=== PATIENT | female | born 1985 | race American Indian/Alaskan Native ===

== ENCOUNTER 2018-09-02 10:02 | Inpatient (IN) | payer MEDICAID ==
[2018-09-02] MEDS: LACTATED RINGERS 1,000 ML IV SCH ×2 (10:20→11:10)
[2018-09-02 10:42] LABS: Basophils % (Auto) 0.3 % (0.0-1.8); Eosinophils % (Auto) 0.6 % (0.0-4.3); Hematocrit 41.3 % (30.3-42.9); Lymphocytes # (Auto) 1.3 K/mm3 (1.2-5.4); Lymphocytes % (Auto) 20.5 % (13.4-35.0); Mean Corpuscular HGB Conc 34 % (30-34); Mean Corpuscular Volume 90 fl (79-97); Monocytes # (Auto) 0.7 K/mm3 (0.0-0.8); Monocytes % (Auto) 10.6 % (0.0-7.3); Platelet Count 225 K/mm3 (140-440); Red Blood Count 4.59 M/mm3 (3.65-5.03); Red Cell Distribution Width 14.6 % (13.2-15.2)
--- NOTE | 2018-09-02 10:52 | Anesthesia Day of Surgery ---
Anesthesia Day of Surgery - Day of Surgery Patient Examined: Yes Patient H&P Reviewed: Yes Patient is NPO: Yes Beta Blockers: No Cardiac Clearance: No Pulmonary Clearance: No
--- NOTE | 2018-09-02 10:55 | Anesthesia Consultation ---
Anesthesia Consult and Med Hx Date of service: 09/02/18 - Airway Anesthetic Teeth Evaluation: Good ROM Head & Neck: Adequate Mental/Hyoid Distance: Adequate Mallampati Class: Class III Intubation Access Assessment: Possibly Difficult - Pulmonary Exam CTA: Yes - Cardiac Exam Cardiac Exam: No Murmur - Pre-Operative Health Status ASA Pre-Surgery Classification: ASA2 Proposed Anesthetic Plan: Spinal Nerve Block: Bilateral quadratus lumborum - Other Systems Hx Obesity: Yes
[2018-09-02] MEDS ORDERED: PITOCin/NS 20 UNIT/1000ML DRIP 20 UNITS/1,000 ML BAG IV SCH ×2 (11:00→14:00)
[2018-09-02] MEDS ORDERED: ANCEF/STERILE WATER 2 GM/20 ML 2 GM/20 ML SYRINGE IV NR (11:00)
[2018-09-02] MEDS ORDERED: REGLAN IV ONE (11:00)
[2018-09-02] MEDS ORDERED: BICITRA PO ONE (11:00)
[2018-09-02] MEDS ORDERED: PEPCID IV ONE (11:00)
--- NOTE | 2018-09-02 11:38 | History and Physical Report ---
History of Present Illness Date of examination: 09/02/18 Date of admission: 09/02/18 10:02 Chief complaint: scheduled repeat csec and salpingectomy History of present illness: this is a 33 yo at 39+2 weeks here for repeat csec. She is a patient of [facility] and has had a previous csec for NRFHT. She declines a . She also desires infertility. She has hx of preeclampsia on asa and depression dx no meds but has no suicidal nor homicidal ideation. Her GBS + Past History Past Medical History: other (depression) Past Surgical History: section (x1) Family/Genetic History: diabetes, other (anxiety and depression) Social history: single. denies: smoking, alcohol abuse, prescription drug abuse - Obstetrical History Expected Date of Delivery: 09/06/18 Actual Gestation: 39 Week(s) 3 Day(s) : 2 Para: 1 Hx # Term Pregnancies: 1 Number of Pregnancies: 0 Spontaneous Abortions: 0 Induced : 0 Number of Living Children: 1 Medications and Allergies Allergies Allergy/AdvReac Type Severity Reaction Status Date / Time ibuprofen [From Motrin] AdvReac Unknown Verified 09/02/18 10:15 Active Meds: Active Medications Cefazolin Sodium (Ancef/Sterile Water 2 Gm/20 Ml) 2 gm in 20 mls @ 80 mls/hr IV PREOP NR; Protocol Stop: 09/02/18 13:00 Lactated Ringer's (Lactated Ringers) 1,000 mls @ 2,250 mls/hr IV PREOP RAISSA Stop: 09/03/18 11:27 Last Admin: 09/02/18 11:10 Dose: 2,250 mls/hr Documented by: Oxytocin/Sodium Chloride (Pitocin/Ns 20 Unit/1000ml Drip) 20 units in 1,000 mls @ 0 mls/hr IV TITR RAISSA Review of Systems All systems: negative - Vital Signs Vital signs: Vital Signs Pulse Pulse Ox 101 H 98 09/02/18 10:20 09/02/18 10:20 Temp Pulse Resp BP Pulse Ox 98.6 F 111 H 18 122/73 97 09/02/18 10:49 09/02/18 11:05 09/02/18 10:49 09/02/18 10:49 09/02/18 11:05 - Physical Exam Breasts: Positive: normal Cardiovascular: Regular rate, Normal S1 Lungs: Positive: Clear to auscultation, Normal air movement Abdomen: Positive: normal appearance, soft, normal bowel sounds. Negative: distention, tenderness, guarding Genitourinary (Female): Positive: normal external genitalia, normal perenium Uterus: Positive: normal size, normal contour Anus/Rectum: Positive: normal perianal skin Extremities: Positive: normal Deep Tendon Reflex Grade: Normal +2 - Obstetrical FHR: category 1 Results Result Diagrams: 09/02/18 10:10 Abnormal lab results 09/02/18 Range/Units 10:10 [place] % (Auto) 10.6 H (0.0-7.3) % All other labs normal. Assessment and Plan A/P IUP 39+3 weeks previous csec and desires infertility Discussed r/b/ a of cesc which include but not limited to bleeding, infection and damage to pelvic and non pelvic organs, risk of blood clot, hysterectomy and . All questions answered will proceed with csec
[2018-09-02] MEDS ORDERED: NEO SYNEPHRINE/NS Syringe(OR USE) IV ONE (11:59)
[2018-09-02] MEDS ORDERED: ZOFRAN ONE (11:59)
--- NOTE | 2018-09-02 13:16 | Procedure Note ---
OB Delivery Note - Delivery Date of Delivery: 09/02/18 Surgeon: RAMON ADAM Estimated blood loss: 300cc - Section Preop diagnosis: repeat Postop diagnosis: same section procedure: section, other (salpingectomy ) Disposition: PACU Complications: none Narrative: see op note - A at 1 minute: 8 at 5 minutes: 9 Infant Gender: Male (6 pounds 12 ounces)
--- NOTE | 2018-09-02 13:25 | Operative Report ---
Operative Report Operative Report: DATE OF OPERATION: 09/02/18 PREOPERATIVE DIAGNOSES: 1. Intrauterine gestation at 39 weeks 2. Previous csec 3. Desires infertility POSTOPERATIVE DIAGNOSES: 1. Intrauterine gestation at 41 weeks, in active labor, second stage. 2. Arrest of descent. 3. Persistent occiput posterior position. 4. Delivery of viable, izrey-zao-nvvafhjxxqg-age male infant. OPERATION PERFORMED: Repeat low transverse section.and salpingectomy SURGEON: Magaly Cervantes MD ANESTHESIA: Spinal COMPLICATIONS: None. ESTIMATED BLOOD LOSS: 300 mL. DRAINS: Montoya catheter to the bladder. SPECIMENS TO PATHOLOGY: Cord blood for routine testing. OPERATIVE FINDINGS: A viable male infant with Apgars of 8 and 9 and birthweight of 6 pounds 12 ounces was delivered from a cephalic presentation The cord contained 3 vessels. There was normal anterior fundal placenta. The amniotic fluid was clear. The uterus, fallopian tubes and ovaries were normal. Minimal adhesions noted from tube to ovary DESCRIPTION OF OPERATION: The patient was brought to the operating suite in stable condition with spinal anesthesia on board and an indwelling catheter in place in the bladder. The patient was placed supine on the operating room table and rolled to her left side with a wedge. The abdomen was prepped and draped in standard fashion for section. After testing with forceps to assure an adequate anesthetic level, the surgery was commenced. We had counseled the patient extensively regarding the risks of the surgery including but not limited to stroke, embolus, phlebitis, pain, infection, hemorrhage, as well as injury to the infant and the internal organs such as the bowel, bladder, blood vessels, nerves, kidneys, ureters and pelvic organs. The patient was aware of the postoperative morbidity issues and recovery timeframes. The patient was aware she can form adhesions, which can result in obstruction of loop of bowel or ureter or chronic pain. She was aware that should she have hemorrhage and require blood transfusion, there was a small chance for exposure to hepatitis or HIV disease. With the scalpel, a Pfannenstiel skin incision was made. Dissection was carried down sharply through the subcutaneous tissues and fascia in a transverse plane with the scalpel, electrocautery and curved Cordova scissors. The fascia was sharply freed up superiorly and inferiorly from the underlying rectus muscles, which were bluntly and sharply divided. The peritoneum was entered carefully in a clear space with a curved hemostat. The peritoneal incision was then extended vertically with Metzenbaum scissors. A retractor and bladder blade were placed. A bladder flap was created by incising transversely through the peritoneum and vesicouterine fold and then bluntly dissecting the bladder distally. With the scalpel, a low transverse hysterotomy was commenced. The serosa and myometrium were scored with the scalpel. The uterine cavity was actually entered bluntly with a curved hemostat. The uterine incision was then extended laterally with the wood drilling machine operator's fingers.Domenica large placed. An intrauterine hand was placed and the head of the was brought up out of the pelvis into the uterine incision. With fundal pressure, he was delivered without difficulty. The nasopharynx and oropharynx were suctioned. The cord was doubly clamped and transected. The infant was then handed off to the nursery personnel. Apgars were good at 8 and 9. A cord pH was obtained, which subsequently revealed a normal value. Further cord blood was collected for routine testing. The placenta was manually removed. The uterine cavity was then curetted with a dry sponge and freed of the remaining membranes. The edges of the uterine incision were grasped with Fisher clamps. With the massage and the Pitocin, the uterus began to firm up normally. The uterine incision was then closed in 2 layers of 0 Vicryl sutures. The first suture was placed to the endometrium and myometrium. The second suture was placed through the endopelvic fascia and also reincorporated the bladder flap peritoneum. Peritoneal lavage was then performed. The pelvis and gutters were irrigated and suctioned and cleared of all blood and clots and amniotic fluid. The uterine incision was reinspected to assure hemostasis. The uterus, tubes and ovaries were inspected and were normal. Attention turned to tubes left tube identified and with ligasure completely transected tube. Attention turned to right tube and with ligasure complete transection of the left tube. Excellent hemostasis noted Once we were satisfied with the hemostasis, attention was turned to closure of the abdominal incision. The peritoneum, muscles and fascia were closed in layers using 0-Vicryl sutures. The subcutaneous tissue was closed with 3-0 plain sutures. The skin was closed with a subcuticular suture of 4-0 Vicryl followed by benzoin, Steri-Strips and a Telfa dressing. The patient was moved to the recovery room in stable condition with the Montoya catheter draining clear urine. Instruments, sponge and needle counts were reported as correct. Estimated blood loss was 800 mL. There were no complications.
[2018-09-02] MEDS ORDERED: PHENERGAN PR PRN (13:27)
[2018-09-02] MEDS ORDERED: NARCAN 0.4 MG/1 ML IV PRN (13:27)
[2018-09-02] MEDS ORDERED: TUCKS PAD TP PRN (13:27)
[2018-09-02] MEDS ORDERED: ANUCORT-HC PR PRN (13:27)
[2018-09-02] MEDS ORDERED: SENOKOT PO PRN (13:27)
[2018-09-02] MEDS ORDERED: MYLICON PO PRN (13:27)
[2018-09-02] MEDS ORDERED: LANSINOH TP PRN (13:27)
[2018-09-02] MEDS ORDERED: MORPHINE IV PRN (13:27)
[2018-09-02] MEDS ORDERED: ZOFRAN IV PRN (13:27)
[2018-09-02] MEDS ORDERED: SODIUM CHLORIDE FLUSH SYRINGE 10 ML IV SCH (14:00)
[2018-09-02] MEDS ORDERED: TORADOL IV ONE (14:12)
[2018-09-02] MEDS ORDERED: METHERGINE IM ONE (14:49)
[2018-09-02] MEDS: CYTOTEC PR SCH (15:02)
[2018-09-02] MEDS ORDERED: KETALAR ONE (16:24)
[2018-09-02] MEDS ORDERED: VERSED ONE (16:24)
[2018-09-02 16:27] LABS: Basophils % (Auto) 0.1 % (0.0-1.8); Hematocrit 40.2 % (30.3-42.9); Hemoglobin 13.5 gm/dl (10.1-14.3); Lymphocytes % (Auto) 6.9 % (13.4-35.0); Mean Corpuscular HGB Conc 34 % (30-34); Mean Corpuscular Volume 92 fl (79-97); Monocytes # (Auto) 0.5 K/mm3 (0.0-0.8); Monocytes % (Auto) 3.6 % (0.0-7.3); Platelet Count 201 K/mm3 (140-440); Red Blood Count 4.39 M/mm3 (3.65-5.03); Red Cell Distribution Width 14.7 % (13.2-15.2)
--- NOTE | 2018-09-02 16:28 | Event Note ---
Date: 09/02/18 I was contacted by the nurse that patient had several large clots passed. VSS pelvic exam several clots expressed s/p methergine IM and cytotoec 1000mg uterus noted to be firm below umbilicus. will take to OR for adequate visualization of the vagina cervix may consider if continued bleeding a D&C CBC abd coags sent
[2018-09-02 16:39] LABS: INR 1.1 (0.87-1.13)
[2018-09-02 16:40] LABS: Partial Thromboplastin Time 21.1 Sec. (24.2-36.6)
--- NOTE | 2018-09-02 17:32 | Event Note ---
Date: 09/02/18 Patient taken to OR for better visualization of vagina and cervix. cervix normal some nabothian cyst noted. Minimal bleeding noted. Vagina normal. Uterus firm at umbilicus. EBL 100 cc total 1100cc will continue methergine po q4 VSS pad count close monitor of vs
[2018-09-02] MEDS ORDERED: AMPICILLIN 2 GM in NACL 0.9% 50 ML IV SCH (18:00)
[2018-09-02] MEDS: MORPHINE IV PRN (20:09)
[2018-09-02] MEDS: METHERGINE PO SCH (20:09)
[2018-09-02] MEDS: GENTAMICIN 160 MG in NACL 0.9% 100 ML IV SCH (20:10)
[2018-09-02] MEDS: D5LR 1,000 ML IV SCH (20:10)
[2018-09-02] MEDS: NORCO 5/325 PO PRN (22:16)
[2018-09-03] MEDS: METHERGINE PO SCH ×2 (01:03→05:47)
[2018-09-03] MEDS: MORPHINE IV PRN ×2 (01:03→16:13)
[2018-09-03] MEDS: AMPICILLIN/NS 2 GM/100 ML 2 GM/100 ML BAG IV SCH ×2 (01:04→08:00)
[2018-09-03 01:24] LABS: Hematocrit 34.6 % (30.3-42.9); Hemoglobin 11.7 gm/dl (10.1-14.3)
[2018-09-03] MEDS: PERCOCET 5/325 PO PRN ×3 (04:14→15:26)
[2018-09-03] MEDS: GENTAMICIN 160 MG in NACL 0.9% 100 ML IV SCH ×3 (04:17→23:29)
[2018-09-03] MEDS: NORCO 5/325 PO PRN (05:47)
[2018-09-03] MEDS ORDERED: BOOSTRIX IM ONE (06:00)
--- NOTE | 2018-09-03 07:42 | Progress Note ---
Assessment and Plan A/P POD#1 s/p repeat csec and salpingectomy PPH maintained by methergine and cytotec bleeding decreased transfer to [facility] close monitor pain not controlled -morphin given close monitor maternal status Subjective - Subjective Date of service: 09/03/18 Principal diagnosis: s/p repeat csec/ salpingectomy/ PPH Interval history: this is a 33 yo at 39+2 weeks here for repeat csec. She is a patient of [facility] and has had a previous csec for NRFHT. She declines a . She also desires infertility. She has hx of preeclampsia on asa and depression dx no meds but has no suicidal nor homicidal ideation. Her GBS + Patient reports: appetite normal, voiding normally, no pain well controlled [place]: doing well Objective - Vital Signs Latest vital signs: Vital Signs Temp Pulse Resp BP BP Pulse Ox 09/03/18 07:34 114 H 127/61 09/03/18 01:34 113 H 126/63 09/03/18 00:33 109 H 124/69 09/02/18 23:33 108 H 123/58 09/02/18 22:33 101 H 130/61 09/02/18 21:33 107 H 124/57 09/02/18 20:33 94 H 133/77 09/02/18 20:32 98.7 F 94 H 18 133/77 09/02/18 11:05 111 H 97 09/02/18 11:00 102 H 97 09/02/18 10:55 108 H 98 09/02/18 10:50 99 H 98 09/02/18 10:49 98.6 F 18 122/73 09/02/18 10:45 107 H 97 09/02/18 10:40 102 H 98 09/02/18 10:35 102 H 96 09/02/18 10:30 107 H 96 09/02/18 10:25 108 H 96 09/02/18 10:22 106 H 94 09/02/18 10:20 101 H 98 Intake and Output 09/02/18 09/02/18 09/03/18 15:59 23:59 07:59 Intake Total 1000 2104 Balance 1000 2104 Intake: IV 1000 2104 Garamycin 160 mg In NaCl 104 0.9% 100 ml @ 104 mls/hr IV Q8H [facility] Rx#:[id number] Lactated Ringers 1,000 ml 1000 @ 2250 mls/hr IV PREOP [facility] Rx#:[id number] Other: Weight 99.79 kg - Exam Breasts: Present: normal Cardiovascular: Present: Regular rate, Normal S1 Lungs: Present: Clear to auscultation, Normal air movement Abdomen: Present: normal appearance, soft, normal bowel sounds. Absent: distention, tenderness, guarding Vulva: both: normal Uterus: Present: normal, firm, fundal height below umbilicus. Absent: bogginess, tenderness Extremities: Present: normal Deep Tendon Reflex Grade: Normal +2 Incision: Present: normal, dry, dressed - Labs Labs: Abnormal lab results 09/02/18 09/02/18 09/02/18 Range/Units 10:10 16:20 16:20 WBC 14.4 H (4.5-11.0) K/mm3 Lymph % (Auto) 6.9 L (13.4-35.0) % [place] % (Auto) 10.6 H (0.0-7.3) % Lymph # 1.0 L (1.2-5.4) K/mm3 Seg Neutrophils % 89.4 H (40.0-70.0) % Seg Neutrophils # 12.8 H (1.8-7.7) K/mm3 APTT 21.1 L (24.2-36.6) Sec.
[2018-09-03] MEDS ORDERED: CITRATE OF MAGNESIA PO NR (08:30)
[2018-09-03] MEDS: D5LR 1,000 ML IV SCH (09:35)
[2018-09-03] MEDS ORDERED: METHERGINE PO SCH (10:00)
[2018-09-03] MEDS: FEOSOL PO SCH (10:48)
[2018-09-03] MEDS: PRENATAL VITAMIN PO SCH (10:49)
[2018-09-03] MEDS: TYLENOL PO PRN ×2 (13:16→22:12)
[2018-09-03] MEDS ORDERED: M-M-R II VACCINE SUB-Q ONE (13:29)
[2018-09-03] MEDS: CYTOTEC PR SCH (15:27)
[2018-09-03] MEDS ORDERED: LACTATED RINGERS 1,000 ML IV SCH (17:00)
[2018-09-03 17:26] LABS: Basophils % (Auto) 0.1 % (0.0-1.8); Eosinophils % (Auto) 0.2 % (0.0-4.3); Hematocrit 29.7 % (30.3-42.9); Hemoglobin 10.1 gm/dl (10.1-14.3); Lymphocytes # (Auto) 1.8 K/mm3 (1.2-5.4); Lymphocytes % (Auto) 15.6 % (13.4-35.0); Mean Corpuscular HGB Conc 34 % (30-34); Mean Corpuscular Volume 92 fl (79-97); Monocytes # (Auto) 1.4 K/mm3 (0.0-0.8); Monocytes % (Auto) 12.1 % (0.0-7.3); Platelet Count 193 K/mm3 (140-440); Red Blood Count 3.24 M/mm3 (3.65-5.03); Red Cell Distribution Width 14.9 % (13.2-15.2)
--- NOTE | 2018-09-03 17:37 | XRay Report ---
FINAL REPORT EXAM: XR CHEST ROUTINE 2V HISTORY: increased RR TECHNIQUE: 2 view examination of the chest PRIORS: None FINDINGS: Limited examination due to prominent soft tissue attenuation. There is no visible pulmonary consolidation, pleural effusion, or pneumothorax. Cardiac silhouette size is normal without vascular congestion. No visible acute displaced fracture in the regional skeleton. IMPRESSION: No evidence of acute cardiopulmonary disease
[2018-09-03] MEDS ORDERED: LACTATED RINGERS 1,000 ML IV ONE (19:15)
[2018-09-03 19:48] LABS: Alanine Aminotransferase 16 units/L (7-56); Albumin 3.1 g/dL (3.9-5); BUN/Creatinine Ratio 15; Blood Urea Nitrogen 9 mg/dL (7-17); Calcium 8.4 mg/dL (8.4-10.2); Hemolysis Index 9
[2018-09-03] MEDS: DILAUDID IV PRN (21:18)
--- NOTE | 2018-09-03 21:42 | Cat Scan Report ---
FINAL REPORT EXAM: CT CHEST W CON HISTORY: abd pain TECHNIQUE: Following administration of IV contrast axial helical imaging was performed through the c hest with sagittal and coronal reformatted images obtained. Comparison: CT abdomen and pelvis also performed today and chest x-ray also performed today FINDINGS: There is no evidence of infiltrate, pneumothorax or pleural fluid collection. The trachea and bronchi are patent. The heart appears to be normal size. The thoracic aorta is normal caliber. There are mildly prominent mediastinal and bilateral axillary lymph nodes. These are nonspecific in a ppearance but are most likely inflammatory in nature. The bony structures are unremarkable. The visualized portion of the upper abdomen is notable for a small collections of air in the upper ab domen. IMPRESSION: 1. No evidence of an acute intrathoracic process. 2. Mildly prominent mediastinal and bilateral axillary lymph nodes that are nonspecific in appearance but are most likely inflammatory in nature. 3. Small collections of free air in the visualized portion the upper abdomen. Please see report of CT abdomen and pelvis also performed today.
--- NOTE | 2018-09-03 21:57 | Cat Scan Report ---
FINAL REPORT EXAM: CT ABDOMEN PELVIS W CON HISTORY: abd pain TECHNIQUE: Following administration of GI and IV contrast axial helical imaging was performed throug h the abdomen and pelvis with sagittal and coronal reformatted images obtained. Delayed axial helical imaging was also performed through the abdomen and pelvis. Comparison is made with the CT chest also performed today. FINDINGS: The liver, spleen, pancreas, kidneys and adrenal glands are normal in appearance. The gallbladder is moderately distended and unremarkable. The bowel is normal caliber. The appendix is normal caliber. There is a moderate amount of stool in the ascending and transverse colon. The abdominal aorta is normal caliber. There is no evidence of pathologic intra-abdominal adenopathy by CT size criteria. The urinary bladder is mildly distended and unremarkable. The uterus is enlarged with collections of air within the uterus, in the anterior pelvic wall with co llections of free air in the abdomen and pelvis and small collections of free fluid in the pelvis con sistent with recent Caesarean section. There are collections of air in the anterior pelvic subcutaneous fat. The bony structures of the are unremarkable. IMPRESSION: 1. Findings consistent with recent Caesarean section with collections of free air in the abdomen and pelvis, anterior pelvic wall and anterior pelvic subcutaneous fat and within the uterus and small col lections of free fluid in the pelvis. 2. Enlarged uterus consistent with acute state. 3. Moderate amount of stool in the ascending and transverse colon.
[2018-09-04] MEDS: AMPICILLIN/NS 2 GM/100 ML 2 GM/100 ML BAG IV SCH ×3 (00:55→17:49)
[2018-09-04] MEDS: CYTOTEC PR SCH ×2 (00:55→06:33)
[2018-09-04] MEDS: MILK OF MAGNESIA PO PRN ×2 (00:55→20:01)
[2018-09-04] MEDS: DILAUDID IV PRN (03:48)
[2018-09-04] MEDS: PERCOCET 5/325 PO PRN ×3 (09:58→20:02)
[2018-09-04] MEDS: PRENATAL VITAMIN PO SCH (09:58)
[2018-09-04] MEDS: FEOSOL PO SCH (10:32)
[2018-09-04] MEDS: GENTAMICIN 160 MG in NACL 0.9% 100 ML IV SCH ×2 (11:45→20:01)
--- NOTE | 2018-09-04 12:04 | Progress Note ---
Assessment and Plan - Patient Problems (1) Previous delivery, delivered Current Visit: Yes Status: Acute Plan to address problem: patient is clinically improved Subjective - Subjective Date of service: 09/04/18 Principal diagnosis: s/p repeat csec/ salpingectomy/ PPH Interval history: IV access had been loss and patient did not receive scheduled antibiotic dose. The patient reports feeling better with the use of percocet. She is tolerating regular diet. CT scan unremarkable. Patient reports: appetite normal, voiding normally, pain well controlled : doing well Objective - Vital Signs Latest vital signs: Vital Signs Temp Pulse Resp BP BP Pulse Ox 09/04/18 08:05 98.9 F 110 H 18 112/61 09/04/18 05:17 98.6 F 102 H 22 127/70 97 09/04/18 00:00 99.1 F 104 H 20 123/61 98 09/03/18 21:00 100.9 F H 110 H 20 118/69 100 09/03/18 18:00 112 H 22 09/03/18 15:52 98.0 F 123 H 28 H 114/72 100 Intake and Output 09/03/18 09/04/18 09/04/18 22:59 06:59 14:59 Intake Total 104 344 120 Output Total 500 Balance -396 344 120 Intake: IV 104 104 Garamycin 160 mg In NaCl 104 104 0.9% 100 ml @ 104 mls/hr IV Q8H [facility] Rx#:[id number] Oral 240 120 Output: Urine 500 Indwelling Catheter 500 Other: Total, Intake Amount 240 120 Total, Output Amount 400 # Voids Indwelling Catheter 3 Void 1 1 - Exam Abdomen: Present: normal appearance, soft - Labs Labs: Abnormal lab results 09/03/18 09/03/18 Range/Units 16:53 18:55 WBC 11.4 H (4.5-11.0) K/mm3 RBC 3.24 L (3.65-5.03) M/mm3 Hct 29.7 L (30.3-42.9) % [place]a % (Auto) 12.1 H (0.0-7.3) % [place]a # 1.4 H (0.0-0.8) K/mm3 Seg Neutrophils % 72.0 H (40.0-70.0) % Seg Neutrophils # 8.2 H (1.8-7.7) K/mm3 Creatinine 0.6 L (0.7-1.2) mg/dL Glucose 107 H (65-100) mg/dL Alkaline Phosphatase 138 H (35-129) units/L Total Protein 5.2 L (6.3-8.2) g/dL Albumin 3.1 L (3.9-5) g/dL
[2018-09-04] MEDS ORDERED: BOOSTRIX IM ONE (14:00)
[2018-09-04] MEDS ORDERED: AFLURIA QUAD 2018-2019 SYRINGE IM ONE (14:00)
[2018-09-05] MEDS: PERCOCET 5/325 PO PRN ×4 (00:22→16:01)
[2018-09-05] MEDS: AMPICILLIN/NS 2 GM/100 ML 2 GM/100 ML BAG IV SCH ×2 (00:23→05:50)
[2018-09-05] MEDS: PRENATAL VITAMIN PO SCH (10:20)
[2018-09-05] MEDS: FEOSOL PO SCH (10:20)
--- NOTE | 2018-09-05 11:48 | Progress Note ---
Assessment and Plan - Patient Problems (1) Previous delivery, delivered Current Visit: Yes Status: Acute Plan to address problem: patient doing well discharge home Subjective - Subjective Date of service: 09/05/18 Principal diagnosis: s/p repeat csec/ salpingectomy/ PPH Interval history: Patient reports feeling better. Tolerating regular diet and voiding without difficulty. Patient reports: appetite normal, voiding normally, pain well controlled [place]: doing well Objective - Vital Signs Latest vital signs: Vital Signs Temp Pulse Resp BP 09/05/18 11:19 98.6 F 93 H 19 115/68 09/05/18 10:21 20 09/05/18 07:25 98.3 F 89 19 91/49 09/04/18 23:30 98.7 F 69 18 109/74 09/04/18 15:45 98.5 F 109 H 20 106/55 Intake and Output 09/04/18 09/05/18 09/05/18 22:59 06:59 14:59 Intake Total 360 400 200 Balance 360 400 200 Intake: IV 100 POLYCILLIN/NS 2 GM/100 ML 100 2 gm In 100 ml @ 100 mls /hr IV Q6HR [facility] Rx#: [id number] Oral 360 200 Intake, Free Water 300 Other: Total, Intake Amount 360 200 # Voids Indwelling Catheter 1 Void 1 # Bowel Movements 1 - Exam Abdomen: Present: normal appearance
--- NOTE | 2018-09-05 11:50 | Discharge Summary ---
Providers - Providers Date of Admission: 09/02/18 10:02 Date of discharge: 09/05/18 Attending physician: RAMON ADAM MD Primary care physician: RAMON ADAM MD Hospitalization Reason for admission: section Delivery: Procedure: section, bilateral tubal ligation, repeat low transverse Incision: normal Discharge diagnosis: IUP at term delivered baby: male Hospital course: Patient admitted for scheduled rltcs and btl. Postop complicated by hemorrhage. Patient received postop antibiotics. Condition at discharge: Good Disposition: DC-01 TO HOME OR SELFCARE - Discharge Diagnoses (1) Previous delivery, delivered Status: Acute Plan - Discharge Medications Prescriptions: Ferrous Sulfate [Feosol 325 MG tab] 325 mg PO BID #60 tablet Ibuprofen [Motrin] 600 mg PO Q8H PRN #30 tablet PRN Reason: Pain oxyCODONE /ACETAMINOPHEN [Percocet 5/325] 1 tab PO Q6HR PRN #30 tablet PRN Reason: Pain - Provider Discharge Summary Activity: no sex for 6 weeks, no heavy lifting 4 weeks, no strenuous exercise Diet: routine Instructions: routine Additional instructions: [] Smoking cessation referral if applicable(refer to patient education folder for contact #) [] Refer to [facility] Booklet Call your doctor immediately for: * Fever > 100.5 * Heavy vaginal bleeding ( >1 pad per hour) * Severe persistent headache * Shortness of breath * Reddened, hot, painful area to leg or breast * Drainage or odor from incision. * Keep incision clean and dry at all times and follow doctor's instructions regarding bathing/showering schedule followup in 2 weeks - Follow up plan
[2018-09-05 15:49] VITALS: BP 119/69
== END 2018-09-05 16:30 | disposition home or self-care (01) | DRG 765 ==
LOC: APU 10:02 → LD 19:12 → OB 09-03 09:59
PROVIDERS: ADMIT Obstetrics & Gynecology; ATTEND Obstetrics & Gynecology
PROC: 10D00Z1 Extraction of Products of Conception, Low, Open Approach (ICD-10-PCS; principal; 2018-09-02)
PROC: 0UT70ZZ Resection of Bilateral Fallopian Tubes, Open Approach (ICD-10-PCS; 2018-09-02)
PROC: 3E0234Z Introduction of Serum, Toxoid and Vaccine into Muscle, Percutaneous Approach (ICD-10-PCS; 2018-09-03)
DX: O34.211 Maternal care for low transverse scar from previous cesarean delivery (principal); O72.1 Other immediate postpartum hemorrhage; O64.0XX0 Obstructed labor due to incomplete rotation of fetal head, not applicable or unspecified; O99.824 Streptococcus B carrier state complicating childbirth; O99.344 Other mental disorders complicating childbirth; O62.1 Secondary uterine inertia; F32.9 Major depressive disorder, single episode, unspecified; O36.63X0 Maternal care for excessive fetal growth, third trimester, not applicable or unspecified; Z84.89 Family history of other specified conditions; Z37.0 Single live birth; Z3A.39 39 weeks gestation of pregnancy; Z83.3 Family history of diabetes mellitus; Z23 Encounter for immunization
CPT/HCPCS: 36415; 71046; 71260; 74177; 80053; 85014; 85018; 85025; 85610; 85730; 86592; 86850; 86900; 86901; 87040; 87086; 88302; 90471; 90686; 90707; 90715; G0378; G0008; J0290; J0690; J1170; J1580; J1885; J2210; J2250; J2270; J2370; J2405; J2590; J2765; J7120; J7121; Q9967